=== PATIENT | female | born 1990 | race Caucasian/White ===

== ENCOUNTER 2021-03-16 04:32 | Emergency (ER) | payer OTHER, SELFPAY ==
[2021-03-16 04:51] VITALS: BP 139/94; PULSE 77; RESP 18; TEMP 36.9; O2SAT 100; BMI 32.3
[2021-03-16 07:10] VITALS: BP 152/87; PULSE 78; RESP 185; O2SAT 98
--- NOTE | 2021-03-16 07:10 | ED.DENTAL ---
HPI - Dental/Oral General Chief complaint: Dental/Oral Stated complaint: ear/neck pain Time Seen by Provider: 03/16/21 07:07 Source: patient Mode of arrival: ambulatory Limitations: no limitations History of Present Illness HPI Narrative: Very pleasant 31 years old of female who presented with right-sided facial pain and dental pain. Denies any fever, vomiting any other systemic symptoms. She states he has been taking ibuprofen without improvement MD Complaint: tooth pain Location: Tooth # (32,31,30) Onset (ago): week(s) (1) Duration: constant Severity: severe Relieving factors: nothing Exacerbating factors: nothing Context: history of dental caries Treatment prior to arrival: none Related Data Previous Rx's Medication Instructions Recorded amoxicillin 500 mg capsule 500 mg PO TID #30 cap 03/16/21 oxycodone 5 mg capsule 5 mg PO Q8H PRN #12 cap 03/16/21 Allergies Allergy/AdvReac Type Severity Reaction Status Date / Time Despec Allergy Unknown stop Uncoded 11/07/18 00:00 breathing Review of Systems Review of Systems: Yes all other systems are reviewed and are negative Constitutional: Constitutional: Reports no additional constitutional complaints Eyes: Eyes: Reports no additional eye complaints Cardiovascular: Cardiovascular: Reports no additional cardiovascular complaints Respiratory: Respiratory: Reports no additional respiratory complaints [facility] Past Medical History Attestation statement: The following information was validated with the patient. Medical History Asthma Social History Social History Patient Tobacco Use Status: Never used Tobacco Use of substances other than those prescribed or required for medical reasons: No Advance Directives: No Advance Directives Information Provided: No Physical Exam Vital Signs: Vital Signs: Last Vital Signs Temp 98.5 F 03/16/21 04:51 Pulse 78 03/16/21 07:10 Resp 185 H 03/16/21 07:10 BP 152/87 H 03/16/21 07:10 Pulse Ox 98 03/16/21 07:10 Body Mass Index 32.3 Const: General: cooperative Nutritional Appearance: average body habitus Orientation/consciousness: oriented to person, oriented to place, oriented to time and patient oriented x3 Limitations: no limitations HENMT: Head: Yes normal to inspection Ears: hearing grossly normal bilaterally General nose exam: Normal external nose present Face and sinus: Yes normal facial exam Mouth: Normal oral and palatal mucosa present Teeth and gingiva: caries and poor dentition Throat: Yes posterior oropharynx normal Neck: Neck: Yes normal visual inspection and Yes full ROM Thyroid: Thyroid normal Chest: Chest palpation & inspection: normal inspection of the chest Resp: Effort & Inspection: normal respiratory effort Auscultation: clear to auscultation bilaterally Cardio: Jugular venous distension: no JVD Rate: regular rate Rhythm: regular rhythm GI: Inspection: Yes normal to inspection Palpation (GI): Soft to palpation, not firm, nontender, no guarding and not rigid Percussion: Yes normal to percussion Skin: General skin exam: no rashes or lesions noted, elasticity normal and turgor normal Lesions: no lesions Rashes: no rashes Neuro: General: oriented to person, oriented to place, oriented to time and patient oriented x3 Discharge Plan Discharge Clinical Impression: Toothache, Dental caries Patient Disposition: Home, Self-Care Instructions: Toothache (ED) Additional Instructions: Please follow-up with you dentist tomorrow call and make an appointment return if you have a fever vomiting any concern Prescriptions: New amoxicillin 500 mg capsule 500 mg PO TID Qty: 30 RF: 0 oxycodone 5 mg capsule 5 mg PO Q8H PRN (Reason: pain) Qty: 12 RF: 0 Stand Alone Forms: Work/School Release Interventions: ED Discharge Assessment Last Done: 03/16/21 07:26 Discharge Date/Time: 03/16/21 07:27
[2021-03-16] MEDS: Amoxicillin 500 MG CAPSULE PO (07:21)
[2021-03-16] MEDS: oxyCODONE HCl Immed Release 5 MG TABLET PO (07:21)
== END 2021-03-16 07:27 | disposition home or self-care (01) ==
PROVIDERS: Emergency Provider Emergency Medicine
DX: K02.9 Dental caries, unspecified (principal); K08.89 Other specified disorders of teeth and supporting structures; H92.03 Otalgia, bilateral; Z79.899 Other long term (current) drug therapy
CPT/HCPCS: 99284